=== PATIENT | female | born 1960 | race Two or more races ===

== ENCOUNTER → 2024-11-17 | Outpatient (CLI) | payer BC ==
[2024-11-17 09:09] LABS: Urine Bacteria None Seen /hpf (None Seen)
[2024-11-17 09:51] LABS: Urine Blood Negative /uL (Negative); Urine Clarity Clear (Clear); Urine Color Light-Yellow (Yellow); Urine Protein, UAD Negative (Negative); Urine Specific Gravity 1.013 (1.001-1.035); Urine Squamous Epithelial Cell FEW /hpf (<5); Urine Urobilinogen Normal (Negative); Urine WBC 1 /HPF (0-5); Urine pH 6.5 (5.0-9.0)
[2024-11-17 09:59] LABS: Alanine Aminotransferase 13 U/L (7-40); Albumin 4.5 g/dL (3.2-4.8); Alkaline Phosphatase 92 U/L (46-116); Anion Gap 7 (5-15); Aspartate Aminotransferase 16 U/L (13-40); BUN/Creatinine Ratio 25.3 (10.0-20.0); Bilirubin, Total 0.4 mg/dL (0.2-1.0); Blood Urea Nitrogen 21 mg/dL (9-23); Calcium 9.7 mg/dL (8.7-10.4); Carbon Dioxide 27 mmol/L (20-31); Cholesterol 183 mg/dL (< 200); Glucose 97 mg/dL (74-106); Potassium 4.1 mmol/L (3.5-5.1); Sodium 142 mmol/L (136-145); Total Protein 6.7 g/dL (5.7-8.2); Triglycerides 51 mg/dL (< 150)
[2024-11-17 10:04] LABS: Chloride 108 mmol/L (98-107); HDL Cholesterol 63 mg/dL (40-59); LDL Cholesterol 110 mg/dL (< 100)
[2024-11-17 10:12] LABS: Basophils # (auto) 0.1 10 ^3/uL (0-0.2); Basophils % (auto) 1.8 % (0.0-2.0); Eosinophils # (auto) 0.2 10 ^3/uL (0-0.8); Hematocrit 39.7 % (36.0-46.0); Hemoglobin 13.2 g/dL (12.2-16.2); Lymphocytes % (auto) 30.6 % (10.0-50.0); Mean Corpuscular Hemoglobin 30.8 pg (28.0-32.0); Mean Corpuscular Hgb Conc. 33.3 g/dL (32.0-36.0); Mean Corpuscular Volume 92.6 fL (80.0-100.0); Monocytes # (auto) 0.2 10 ^3/uL (0-1.3); Monocytes % (auto) 6.5 % (0.0-12.0); Neutrophils # (auto) 1.9 10 ^3/uL (1.6-8.6); Neutrophils % (auto) 55.1 % (37.0-80.0); Platelet Count (auto) 259 10^3/uL (140-450); Red Blood Cells 4.28 10^6/uL (4.0-5.20); Red Cell Distribution Width 13.2 % (11.8-14.3); White Blood Cell 3.4 10^3/uL (4.4-10.8)
[2024-11-17 10:19] LABS: % Iron Saturation 22.3 % (15-50)
[2024-11-17 10:32] LABS: Ferritin 36.1 ng/mL (10-291); Free T4 (Free Thyroxine) 1.52 ng/dL (0.89-1.76)
[2024-11-17 10:33] LABS: Folate (Folic Acid) 14.41 ng/mL (>5.38); Free T3 3.17 pg/mL (2.3-4.2)
== END | disposition home or self-care (01) ==
LOC: LAB 08:48
PROVIDERS: ATTEND Internal Medicine
DX: E55.9 Vitamin D deficiency, unspecified (principal); E78.5 Hyperlipidemia, unspecified; E53.9 Vitamin B deficiency, unspecified; E06.3 Autoimmune thyroiditis; Z00.00 Encounter for general adult medical examination without abnormal findings
CPT/HCPCS: 36415; 80053; 80061; 81001; 82306; 82607; 82728; 82746; 83540; 83550; 84439; 84443; 84481; 85025; 87086

== ENCOUNTER → 2024-11-27 | Outpatient (CLI) | payer BC | END | disposition home or self-care (01) | LOC: LAB 12:12 | PROVIDERS: ATTEND Internal Medicine | DX: Z12.11 Encounter for screening for malignant neoplasm of colon (principal); Z01.419 Encounter for gynecological examination (general) (routine) without abnormal findings | CPT/HCPCS: 82270 ==

== ENCOUNTER → 2025-04-09 | Outpatient (CLI) | payer BC ==
[2025-04-09 15:06] LABS: Free T3 2.69 pg/mL (2.3-4.2); Free T4 (Free Thyroxine) 1.34 ng/dL (0.89-1.76)
== END | disposition home or self-care (01) ==
LOC: LAB 13:44
PROVIDERS: ATTEND Internal Medicine
DX: E06.3 Autoimmune thyroiditis (principal)
CPT/HCPCS: 36415; 84439; 84443; 84481